=== PATIENT | female | born 1960 | race Caucasian/White ===

== ENCOUNTER 2018-01-22 08:11 | Day surgery (SDC) | payer MEDICAID ==
[2018-01-15 11:35] VITALS: BMI 26.4
[2018-01-22] MEDS ORDERED: Lidocaine Hydrochloride 10 ML INJ ONE (09:02)
[2018-01-22] MEDS ORDERED: Iohexol 350mg/ml 100 ML ONE (09:18)
[2018-01-22] MEDS ORDERED: Verapamil 2 ML ONE (10:24)
[2018-01-22] MEDS ORDERED: Nitroglycerin 50mg in D5W 50 MG/250 ML BOTTLE IV ONE (10:24)
[2018-01-22] MEDS ORDERED: Midazolam 2 MG/2 ML VIAL ONE ×2 (10:24→10:48)
--- NOTE | 2018-01-22 20:59 | CARDCATH ---
PROCEDURE DATE: 01/22/2018 INDICATIONS: Luis Enrique is a 57-year-old female with a history of hypertension, diabetes, hyperlipidemia who was referred to me by Dr. Analilia Rincon for evaluation of symptoms of atypical chest pain and dyspnea on exertion. She underwent a nuclear stress test, which showed evidence of mild reversibility and therefore [facility] was brought [facility] evaluation and treatment. PROCEDURE PERFORMED: Left heart catheterization with selective left and right coronary angiogram via right radial approach, 6-Ivorian right radial arterial access, wrist band for hemostasis. ANGIOGRAPHIC FINDINGS: Left main large size vessel bifurcates into left anterior descending and left circumflex coronary artery. Left anterior descending is a large size vessel gives of two medium-sized diagonal branches. The mid left anterior descending artery has a 55% myocardial bridge showing vasospasm in the systolic phase. Left circumflex is a large size vessel runs in the AV groove and distally continues at the posterior descending artery giving the heart a left dominant circulation. Left circumflex system is free of any obstructive disease. Left circumflex gives a medium size obtuse marginal branch, which is free of any obstructive disease. Right coronary artery is a large size vessel that gives of RV branch and distally continues as the PLV, free of any obstructive disease. Left ventricular ejection fraction 55 to 60%, left ventricular diastolic pressure was 18 mmHg. IMPRESSION: Mid left anterior descending myocardial bridge, elevated end-diastolic pressure consistent with possible mild diastolic dysfunction, normal ejection fraction. RECOMMENDATIONS: Aggressive medical management, risk factor modification. Add beta-blockers to her current regimen and consider LINDSAY inhibitors. The patient can be discharged home in [address] Rincon. Thank you Dr. Analilia Rincon for letting me participate in the care of the patient. Ab Ortez MD cc: Analilia Rincon MD
[2018-01-23 15:48] VITALS: RESP 16; O2SAT 100
== END 2018-01-22 13:40 | disposition home or self-care (01) ==
LOC: C.CATHLAB 08:11
PROVIDERS: ATTEND Internal Medicine Interventional Cardiology
DX: R94.39 Abnormal result of other cardiovascular function study (principal); I10 Essential (primary) hypertension; E78.5 Hyperlipidemia, unspecified; E11.9 Type 2 diabetes mellitus without complications
CPT/HCPCS: 82948; 93458; 99152; 99153; C1769; C1887; C1894; J1644; J2001; J2250; J2405; J3010; Q9967